=== PATIENT | male | born 1955 | race Caucasian/White ===

== ENCOUNTER → 2023-11-29 07:02 | Outpatient (REF) | payer MEDICARE, OTHER, SELFPAY ==
[2023-11-29 07:39] LABS: % Basophils 0.4 % (0-2); % Eosinophils 4.3 % (0-6); % Immature Granulocytes 0.4 % (0-0.5); % Lymphocytes 17.1 % (20.5-51.1); % Monocytes 14.7 % (1.7-9.3); % Neutrophils 63.1 % (42.2-75.2); Absolute Eosinophils 0.2 10^3/uL (0-0.7); Absolute Lymphocytes 0.8 10^3/uL (1.2-3.4); Absolute Monocytes 0.7 10^3/uL (0.1-0.6); Absolute Neutrophils 2.9 10^3/uL (1.4-6.5); Hematocrit 44.8 % (39.0-52.0); Hemoglobin 13.7 g/dL (13.0-18.0); Mean Corp Hgb Conc. 30.6 g/dL (33.0-37.0); Mean Corpuscular Hgb 20.2 pg (27.0-31.0); Mean Corpuscular Volume 66.1 fL (80.0-94.0); Mean Platelet Volume 9.9 fL (7.4-10.4); Nucleated Red Blood Cells % 0 % (-); Platelet Count 109 10^3/uL (130-400); Red Blood Cell Count 6.78 10^6/uL (4.70-6.10); Red Cell Dist. Width 17.4 % (11.5-14.5); White Blood Cell Count 4.6 10^3/uL (4.8-10.8)
[2023-11-29 08:48] LABS: ALT (SGPT) 17 U/L (0-50); AST (SGOT) 21 U/L (17-59); Albumin 4.5 g/dl (3.5-5.0); Alkaline Phosphatase 61 U/L (38-126); Blood Urea Nitrogen 28 mg/dl (9-20); Calcium 9.6 mg/dl (8.4-10.2); Carbon Dioxide 26 mmol/L (22-30); Chloride 102 mmol/L (98-107); Glucose 100 mg/dl (70-99); HDL Cholesterol 55 mg/dl; LDL Cholesterol, Calculated 87 mg/dl; Potassium 4.2 mmol/L (3.5-5.1); Sodium 137 mmol/L (135-145); Total Cholesterol 165 mg/dl (50-199); Total Protein 7.3 g/dl (6.3-8.2); Triglyceride 118 mg/dl (10-149); Very Low Density Lipoprotein 23 mg/dl (0-30); eGFR > 60.00
[2023-11-29 09:11] LABS: TSH 2.27 uIU/ml (0.47-4.68)
== END ==
LOC: REG 07:02
PROVIDERS: ATTENDING PHYSICIAN Internal Medicine
DX: Z00.00 Encounter for general adult medical examination without abnormal findings (principal); R97.20 Elevated prostate specific antigen [PSA]; C60.9 Malignant neoplasm of penis, unspecified; E78.5 Hyperlipidemia, unspecified
CPT/HCPCS: 36415; 80053; 80061; 84153; 84443; 85025

== ENCOUNTER → 2023-12-26 07:30 | Outpatient (REF) | payer MEDICARE, OTHER, SELFPAY | LOC: MRI 3T 07:30 | PROVIDERS: ATTENDING PHYSICIAN Internal Medicine; REFERRING PHYSICIAN Internal Medicine Hematology & Oncology | DX: R97.20 Elevated prostate specific antigen [PSA] (principal) | CPT/HCPCS: 72197; A9575 ==

== ENCOUNTER → 2024-01-07 14:24 | Outpatient (REF) | payer MEDICARE, OTHER, SELFPAY | LOC: HWRAD 14:24 | PROVIDERS: ATTENDING PHYSICIAN Nurse Practitioner Family; FAMILY PHYSICIAN Internal Medicine | DX: C60.9 Malignant neoplasm of penis, unspecified (principal); C61 Malignant neoplasm of prostate | CPT/HCPCS: 71270; 74170; Q9967 ==

== ENCOUNTER → 2024-03-16 16:37 | Outpatient (REF) | payer MEDICARE, OTHER, SELFPAY | LOC: RAD 16:37 | PROVIDERS: ATTENDING PHYSICIAN Internal Medicine | DX: S00.11XA Contusion of right eyelid and periocular area, initial encounter (principal); W19.XXXA Unspecified fall, initial encounter; R51.9 Headache, unspecified | CPT/HCPCS: 70450 ==

== ENCOUNTER → 2024-04-14 06:57 | Outpatient (REF) | payer MEDICARE, OTHER, SELFPAY | LOC: REG 06:57 | PROVIDERS: ATTENDING PHYSICIAN Internal Medicine Hematology & Oncology; FAMILY PHYSICIAN Internal Medicine | DX: C61 Malignant neoplasm of prostate (principal); C60.9 Malignant neoplasm of penis, unspecified | CPT/HCPCS: 36415; 84153 ==

== ENCOUNTER → 2024-06-30 07:03 | Outpatient (REF) | payer MEDICARE, OTHER, SELFPAY ==
[2024-06-30 08:00] LABS: % Basophils 0.5 % (0-2); % Eosinophils 5.1 % (0-6); % Immature Granulocytes 0.3 % (0-0.5); % Lymphocytes 18.3 % (20.5-51.1); % Neutrophils 62.8 % (42.2-75.2); Absolute Eosinophils 0.2 10^3/uL (0-0.7); Absolute Lymphocytes 0.7 10^3/uL (1.2-3.4); Absolute Monocytes 0.5 10^3/uL (0.1-0.6); Absolute Neutrophils 2.5 10^3/uL (1.4-6.5); Hematocrit 45.4 % (39.0-52.0); Hemoglobin 13.6 g/dL (13.0-18.0); Mean Corpuscular Hgb 20.1 pg (27.0-31.0); Mean Corpuscular Volume 67.2 fL (80.0-94.0); Mean Platelet Volume 9.7 fL (7.4-10.4); Nucleated Red Blood Cells % 0 % (-); Platelet Count 131 10^3/uL (130-400); Red Blood Cell Count 6.76 10^6/uL (4.70-6.10); Red Cell Dist. Width 17.7 % (11.5-14.5); White Blood Cell Count 3.9 10^3/uL (4.8-10.8)
[2024-06-30 08:23] LABS: Blood Urea Nitrogen 27 mg/dl (9-20); Calcium 9.5 mg/dl (8.4-10.2); Carbon Dioxide 30 mmol/L (22-30); Chloride 101 mmol/L (98-107); Glucose 97 mg/dl (70-99); Potassium 4.5 mmol/L (3.5-5.1); Sodium 144 mmol/L (135-145); eGFR > 60.00
== END ==
LOC: REG 07:03
PROVIDERS: ATTENDING PHYSICIAN Urology; FAMILY PHYSICIAN Internal Medicine
DX: Z01.818 Encounter for other preprocedural examination (principal); C61 Malignant neoplasm of prostate; Z01.812 Encounter for preprocedural laboratory examination
CPT/HCPCS: 36415; 71046; 80048; 84153; 85025; 87086

== ENCOUNTER 2024-07-31 07:36 | Emergency (ER) | payer MEDICARE, OTHER, SELFPAY ==
[2024-07-31 07:40] VITALS: BP 157/97
--- NOTE | 2024-07-31 08:48 | ED.GENMED ---
History of Present Illness
General
Chief Complaint: Urinary Symptoms
Time Seen by Provider: 07/31/24 08:08
History of Present Illness
History of Present Illness:
68-year-old male with history of penile cancer and prostate cancer, status post cryoablation of his prostate 07/23 in [place]. Patient traveled to [place] specifically for this minimally invasive procedure. He was told by his doctor that he could
go to his primary care doctor and get his Qiu removed today. He tried to follow-up with his primary care doctor, however had difficulty doing such, and was told to come to the ER. Patient denies any complications postsurgery. He notes that his
urine has been clear. Denies any fever. Denies abdominal pain, chest pain, difficulty breathing. He does note moderate swelling to his testicles and his penis which she was told to expect. He denies additional acute medical complaints
Phy Exam
Physical Exam
Physical Exam:
General: Well-appearing, no clinical signs of dehydration, nontoxic and in no acute distress
HEENT: protecting airway
Neck: appears supple
CV: Normal heart rate
Resp: No accessory muscle use, no increased work of breathing
Abd: No distention
Extremities: No deformities, no swelling
Neuro: alert, no focal neurologic deficit
: Moderate swelling to testicles and penis. Qiu catheter draining clear urine
Rectal: deferred
Psych: Normal affect
Skin: Intact
Course
Vital Signs
Initial and Last Documented VS:
Initial Vital Signs
Temp Pulse Resp BP Pulse Ox
98.2 F 90 16 157/97 98
07/31/24 07:40 07/31/24 07:40 07/31/24 07:40 07/31/24 07:40 07/31/24 07:40
Last Documented Vital Signs
Temp Pulse Resp BP Pulse Ox
98.2 F 90 16 157/97 98
07/31/24 07:40 07/31/24 07:40 07/31/24 08:06 07/31/24 07:40 07/31/24 07:40
MDM/Problems Addressed
MDM/Problems Addressed:
68-year-old male with history of prostate and penile cancer presenting status post cryoablation to the prostate 07/23, requesting Qiu catheter be removed per his doctor in [place]. Vital signs on arrival are normal.
On exam, patient is resting comfortably, no acute distress or discomfort. Patient's testicles and penis are moderately swollen, which she was to expect. Did try to call patient's physician office, Dr. Abrams, however unable to reach anyone. Did
reach out to our urology service, note that patient had called their office yesterday, and they declined to remove his Qiu catheter. At this point do not feel comfortable removing patient's Qiu given level swelling. Advising patient to return
once swelling has reduced, or alternatively, to make an appointment with urology office in the next few weeks. Otherwise feel stable for discharge. Return precautions discussed and patient verbalized understanding
*Critical Care Note
Total Time (30-74mins, 75-104mins- exclusive of procedures): Not Applicable
ED Attending Note
-
Portions of this chart may have been created with voice recognition software.� Occasional wrong word or��sound alike� substitutions may have occurred due to the inherent limitations of voice recognition software.
Discharge Plan
Departure
Prescriptions:
No Action
acetaminophen 325 MG tablet
650 mg PO Q4HPRN PRN (Reason: Pain)
polyethylene glycol 3350 [Miralax] 17 GM powder in packet
17 grams PO DAILY PRN (Reason: constipation) Qty: 0 0RF
Referrals:
Nathaniel Jaquez MD [Family Provider] -
Interventions
Interventions:
*Risk Screen - Suicide Last Done: 07/31/24 07:40
*General Assessment Last Done: 07/31/24 08:07
*Neglect/Abuse Screening Last Done: 07/31/24 07:40
*ED COVID-19 Vaccine History Last Done: 07/31/24 08:07
ED-Male Genitourinary Assessment Last Done: 07/31/24 08:07
Discharge Date and Time
Print Language: CZECH
[2024-07-31 09:19] VITALS: BP 148/90
== END 2024-07-31 09:20 | disposition home or self-care (01) ==
LOC: EMR 07:36
PROVIDERS: EMERGENCY PHYSICIAN Student in an Organized Health Care Education/Training Program; FAMILY PHYSICIAN Internal Medicine
DX: N49.2 Inflammatory disorders of scrotum (principal); Z46.6 Encounter for fitting and adjustment of urinary device
CPT/HCPCS: 99281

== ENCOUNTER 2024-08-14 12:46 | Inpatient (IN) | payer MEDICARE, OTHER, SELFPAY ==
[2024-08-14] VITALS (11 sets, daily range): BP systolic 122–152; BP diastolic 60–85; BMI 28.9; BMI 29.5
--- NOTE | 2024-08-14 08:36 | ED.GENMED ---
History of Present Illness
General
Chief Complaint: Fever
Source: patient, records and spouse
Exam Limitations: none
Time Seen by Provider: 08/14/24 08:11
Nursing documentation reviewed up to this point in time: agreed with
History of Present Illness
History of Present Illness:
68-year-old male with a past medical history as noted significant for penile and prostate cancer who presents to the emergency room with his for evaluation of fever and chills. Patient had surgery in [facility] with Dr. Abrams
07/23/2024 and has had Qiu catheter in place since. He had a course of Macrobid after surgery and has been maintained on Flomax. Initially catheter was to be removed after a week but unfortunately postoperative course has been complicated by
significant penile and scrotal edema precluding removal of catheter. Patient has been following here in [place] with Dr. Mccormack for urology, he is scheduled to have an appointment next week for consideration for catheter removal. He has been
on Lasix and potassium supplement to help with scrotal edema. He says urine has been clear and he had been doing generally well aside from scrotal swelling. He says last night he started to have high fever and chills. Discussed with urologist who
recommended he come to the ER to be evaluated. He has not noticed any cloudiness to the urine although it is slightly darker than usual today. He denies any abdominal or flank pain. He does have persistent scrotal swelling and was noted to have
some redness of the scrotum�he thinks this may be worse than usual. He does have soreness of the scrotum but says this is not new. He denies any other symptoms such as cough, URI symptoms.
Review of Systems
Review of Systems
All Other Systems: ROS reviewed and negative except as documented in HPI and ROS
Constitutional: Reports fever and chills
EENT: Denies sore throat or runny nose
Respiratory: Denies cough or trouble breathing
Cardiac: Denies chest pain
ABD/GI: Denies abdominal pain, nausea or vomiting
: Reports dark urine and other (Scrotal swelling and redness); Denies flank pain
Musculoskeletal: Denies neck pain or back pain
Neurological: Denies headache
Phy Exam
Physical Exam
Physical Exam:
General: Awake, alert, oriented x3; no acute distress
Head: Normocephalic, atraumatic
Eyes: Conjunctiva normal
Throat: Airway intact, handling secretions
Neck: Trachea midline, supple without meningismus
Lungs: Breathing comfortably noted distress, no tachypnea, normal pulse ox on room air
Heart: Tachycardia
Abd: Soft, non distended, nontender with no palpable masses
: Patient has marked penile and scrotal edema with Qiu catheter in place�unable to visualize glans/urethra due to marked edema; skin of the scrotum penis is erythematous, warm, tender to the touch and skin of the base of the scrotum is
indurated, no wounds, no significant erythema extending into the perineum, no crepitus or fluctuance; erythema does extend to the pubic mound/suprapubic region and this area is also warm and tender
Back: No CVA tenderness
Neuro: No gross deficits
Extremities: No edema in extremities, warm and well-perfused
Scores
Heart Failure Risk
Heart Failure Risk Score: Not Applicable
Heart Score for Chest Pain Patients
STEMI patient?: Not applicable
Withdrawal Assessment of Alcohol
Withdrawal Assessment Completed?: Not applicable
Course
Orders/Labs/Results
Orders:
Orders
08/14/24 08:32
0.9% Sodium Chloride 1000 ml [Nss] 1,000 ml IV BOLUS
08/14/24 08:35
UROLOGY CONSULT Urgent
Consulting Provider: Basil Krueger
Was physician already notified: Yes
08/14/24 08:36
CT Abd/pelvis W Iv Cont Urgent
Comment: extend to base of scrotum
Reason For Exam: fever and chills, scrotal swelling and redness
08/14/24 09:16
COVID-19 Antigen Urgent
Source: Nasal Swab
Complete Blood Count/With Diff Urgent
Comprehensive Metabolic Panel Urgent
Lactate Level [Lactic Acid] Urgent
Blood Culture Q30M
NANCY Source: Blood/Venous
Specimen Description:
Blood Culture Q30M
NANCY Source: Blood/Venous
Specimen Description:
Influenza A+B Rapid Molecular Urgent
NANCY Source: Nasal Swab
Specimen Description:
08/14/24 09:17
Urinalysis Reflex To Culture Urgent
Date Specimen was Collected: 08/14/24
Time Specimen was Collected: 09:14
Urine Microscopic Reflex Cult Urgent
Urine Culture Urgent
NANCY Source: U
Specimen Description:
Date Specimen was Collected: 08/14/24
Time Specimen was Collected: 09:14
08/14/24 09:29
Piperacillin/Tazo 3.375 Gram [Zosyn] 3.375 gram in 50 ml IV NOW
08/14/24 09:49
Vancomycin [Vancocin] 2,000 mg 0.9% Sodium Chloride 500 ml [Nss] 500 ml IV NOW
Abnormal Lab Results
08/14/24 08/14/24
09:16 09:17
Hgb 11.6 L g/dL
(13.0-18.0)
Hct 36.6 L %
(39.0-52.0)
MCV 64.2 L fL
(80.0-94.0)
MCH 20.4 L pg
(27.0-31.0)
MCHC 31.7 L g/dL
(33.0-37.0)
RDW 16.0 H %
(11.5-14.5)
MPV 10.7 H fL
(7.4-10.4)
Absolute Lymphs (auto) 0.5 L 10^3/uL
(1.2-3.4)
Neutrophils % 83.3 H %
(42.2-75.2)
Lymphocytes % 6.8 L %
(20.5-51.1)
BUN 24 H mg/dl
(9-20)
Glucose 107 H mg/dl
(70-99)
Ur Occult Blood Reflex 4+ A
(Negative)
Urine Nitrite (Reflex) Positive A
(Negative)
Leukocyte Esterase Rfl 2+ A
(Negative)
Urine RBC 50-60 A /HPF
(0-2)
Urine WBC (Reflex) >100 A /HPF
(0-5)
Urine Bacteria (Reflex) Moderate A
(Negative)
Urine Albumin (Reflex) 1+ A
(Neg - Trace)
08/14/24 09:16
08/14/24 09:16
Vital Signs
Initial and Last Documented VS:
Initial Vital Signs
Temp Pulse Resp BP Pulse Ox
37.5 C 107 16 136/82 96
08/14/24 07:29 08/14/24 07:29 08/14/24 07:29 08/14/24 07:29 08/14/24 07:29
Last Documented Vital Signs
Temp Pulse Resp BP Pulse Ox
36.8 C 107 16 136/82 96
08/14/24 09:23 08/14/24 07:29 08/14/24 07:29 08/14/24 07:29 08/14/24 07:29
MDM/Problems Addressed
Differential Diagnosis Includes:
UTI, skin infection/Akbar's; other source of fever non-urologic including URI/pneumonia less likely without other symptoms
MDM/Problems Addressed:
68-year-old male presents for evaluation of fever in the setting of recent urologic procedure and Qiu catheter. He has had significant scrotal and penile swelling since his procedure in mid July. He arrived was tachycardic, afebrile here but
reported fever of 101 �F at home. Physical exam as above. Will send off labs including a CBC and a CMP, lactate and blood cultures. Swab for COVID and flu. Will send urinalysis. Hold on exchanging Qiu catheter given marked penile and scrotal
edema and concerns about ability to replace catheter on removal. Will send for a CT of the abdomen pelvis extended the base of the scrotum. Will provide IV fluids. Case discussed with urology for consultation at bedside given marked scrotal edema
and erythema. Monitor very closely, follow temperature/vitals, reassess after the above.
Labs reviewed: CBC and CMP no clinically significant. Urinalysis positive for infection. CT abdomen pelvis shows signs consistent with UTI, minor incidental findings but no other acute pathology noted. Urology evaluated bedside, will treat with
antibiotics, admit to hospitalist. Case discussed with hospitalist for admission.
Chronic conditions affecting care:
Prostate/penile cancer
*Radiology
Radiology exam reviewed: radiology read reviewed
*Pulse Oximetry
Patient hypoxic: no
*Critical Care Note
Total Time (30-74mins, 75-104mins- exclusive of procedures): Not Applicable
Data Reviewed
Source: patient, records and spouse
Patient Management
Discussion with other providers: Hospitalist (Discussed with hospitalist) and Chart Collector (Discussed with urologist)
Escalation/DeEscalation of care consider admission/obs:
Admission indicated
ED Attending Note
-
Portions of this chart may have been created with voice recognition software.� Occasional wrong word or��sound alike� substitutions may have occurred due to the inherent limitations of voice recognition software.
Discharge Plan
Departure
Patient Disposition: Admit
Date of Disposition: 08/14/24
Time of Disposition: 11:28
Admit to doctor: Yannick
Presentation/result/management discussed w/ accepting MD/DO: Hospitalist
Discharge Problem:
Complicated urinary tract infection, Cellulitis of scrotum
Prescriptions:
No Action
ascorbic acid (vitamin C) [Vitamin C] 1,000 mg Tablet
1,000 mg PO DAILY
potassium chloride [Klor-Con] 20 mEq packet
20 meq PO DAILY@1200
tamsulosin 0.4 mg capsule
0.4 mg PO DAILY
bisacodyl [Dulcolax (bisacodyl)] 5 mg Tablet,Delayed Release (Dr/Ec)
5 mg PO DAILYPRN PRN (Reason: constipation)
furosemide 20 mg tablet
20 mg PO DAILY@1200
cholecalciferol (vitamin D3) [Vitamin D3] 125 mcg (5,000 unit) Tablet
125 mcg PO DAILY
Referrals:
Nathaniel Jaquez MD [Family Provider] -
Interventions
Interventions:
*Risk Screen - Suicide Last Done: 08/14/24 07:29
*General Assessment Last Done: 08/14/24 07:29
*Neglect/Abuse Screening Last Done: 08/14/24 07:29
ED- Fall Risk Assessment Last Done: 08/14/24 08:53
*ED COVID-19 Vaccine History Last Done: 08/14/24 08:53
ED- Neurological Assessment Last Done: 08/14/24 08:53
ED-Skin Assessment Last Done: 08/14/24 08:53
Discharge Date and Time
Print Language: TANZANIAN
[2024-08-14] MEDS: NSS 1000 IV (09:14)
--- NOTE | 2024-08-14 09:25 | CONS.URO ---
Medical History
History of Present Illness
pt with complex urologic hx
������� partial penectomy and groin dissection at [facility] in 2012 for penile carcinoma- dr hayes administered chemo- had been dz free since- some pelvic nodes on imaging- but stable
�������urologically has been under the care of dr gong
�������diagnosed with prostate cancer for which he elected to go to [place] for primary cryoablation, performed during July; returned to [place] with Qiu
now presents to ED for worsening peno-scrotal edema with pain and fevers
Past Medical History
Past Medical History: None ( Thalassemia. Sarcoidosis - Asymptomatic-Diagnosed by Biopsy. boarderline DM. Penile Cancer-Chemo, SurgeryUOP [address].)
Past Surgical History: Other (partial penectomy + LND in 2012; 07/2024 prostate cryoablation in [place])
Social History
Personal:
Allergies/Home Medications
Allergies
Allergy/AdvReac Type Severity Reaction Status Date / Time
nitrofurantoin Allergy Rash Verified 08/14/24 07:36
[From Macrobid]
Home Medications
�Medication �Instructions �Recorded �Confirmed �Type
acetaminophen 325 mg tablet 650 mg PO Q4HPRN PRN Pain 07/02/13 07/23/13 History
polyethylene glycol 3350 17 gram 17 grams PO DAILY PRN constipation 07/26/13 Rx
oral powder packet (Miralax) ##0
Physical Exam
Vital Signs
Vital Signs
Temp Pulse Resp BP Pulse Ox
98.3 F 107 16 136/82 96
08/14/24 09:23 08/14/24 07:29 08/14/24 07:29 08/14/24 07:29 08/14/24 07:29
Physical Exam
adult male on ED [facility]
General: No Apparent Distress
GI: Soft and Non Tender
Genito-urinary: Qiu Catheter and Other (uncircumcised penis and scrotum are grossly edematous and erythematous with tender induration along inferior scrotum into perineum)
Assessment / Plan
-
peno-scrotal cellulitis -- post-cryoablation necrosis
Rec:
keep Qiu
empiric abx until micro results return
Data Reviewed
-
Old Records: Reviewed
[2024-08-14 09:43] LABS: % Basophils 0.2 % (0-2); % Eosinophils 0.9 % (0-6); % Immature Granulocytes 0.3 % (0-0.5); % Lymphocytes 6.8 % (20.5-51.1); % Monocytes 8.5 % (1.7-9.3); % Neutrophils 83.3 % (42.2-75.2); Absolute Eosinophils 0.1 10^3/uL (0-0.7); Absolute Lymphocytes 0.5 10^3/uL (1.2-3.4); Absolute Monocytes 0.6 10^3/uL (0.1-0.6); Absolute Neutrophils 5.5 10^3/uL (1.4-6.5); Hematocrit 36.6 % (39.0-52.0); Hemoglobin 11.6 g/dL (13.0-18.0); Mean Corp Hgb Conc. 31.7 g/dL (33.0-37.0); Mean Corpuscular Hgb 20.4 pg (27.0-31.0); Mean Corpuscular Volume 64.2 fL (80.0-94.0); Mean Platelet Volume 10.7 fL (7.4-10.4); Nucleated Red Blood Cells % 0 % (-); Platelet Count 136 10^3/uL (130-400); White Blood Cell Count 6.6 10^3/uL (4.8-10.8)
[2024-08-14] MEDS: ZOSYN 50 IV ×3 (09:43→23:12)
[2024-08-14 09:54] LABS: Urine Albumin 1+ (Neg - Trace); Urine Bilirubin Negative (Negative); Urine Character Slightly Cloudy (Clear); Urine Color Yellow; Urine Glucose Negative (Negative); Urine Ketone Negative (Negative); Urine Leukocyte 2+ (Negative); Urine Nitrite Positive (Negative); Urine Occult Blood 4+ (Negative); Urine Urobilinogen Negative (Neg - 1+)
[2024-08-14 09:57] LABS: COVID-19 Antigen Negative (Negative)
[2024-08-14 10:00] LABS: Lactic Acid 1.2 mmol/L (0.7-2.0)
[2024-08-14 10:01] LABS: ALT (SGPT) 13 U/L (0-50); AST (SGOT) 17 U/L (17-59); Albumin 3.7 g/dl (3.5-5.0); Alkaline Phosphatase 56 U/L (38-126); Blood Urea Nitrogen 24 mg/dl (9-20); Carbon Dioxide 29 mmol/L (22-30); Chloride 98 mmol/L (98-107); Estimated Creatinine Clearance 71 ml/min; Glucose 107 mg/dl (70-99); Potassium 3.9 mmol/L (3.5-5.1); Sodium 136 mmol/L (135-145); Total Bilirubin 1.2 mg/dl (0.2-1.3); Total Protein 6.4 g/dl (6.3-8.2); eGFR > 60.00
[2024-08-14 10:42] LABS: Urine White Cell >100 /HPF (0-5)
[2024-08-14 10:43] LABS: Urine Bacteria Moderate (Negative); Urine Squamous Cell 0-2 /LPF (Few)
[2024-08-14 10:44] LABS: Urine Red Blood Cell 50-60 /HPF (0-2)
[2024-08-14] MEDS: VANCOCIN 540 MG IV (10:49)
--- NOTE | 2024-08-14 12:29 | HPS.HSE ---
Family Physician
-
Family Physician: Nathaniel Jaquez MD
Chief Complaint
-
Fever, Scrotal/Penile Swelling
History of Present Illness
Patient is a 68 y/o male past medical history of penile cancer in 2012 and prostate cancer s/p cryoablation on 07/23/24 who presents with fever with scrotal/penile swelling. Patient reports since the procedure he has had persistent swelling of the
penis and scrotum. He has had a Qiu catheter in place since the surgery due to the persistent swelling. Last night he developed fever as high as 101F associated with sweats/chills. He denies cough, nausea, vomiting, diarrhea, or abdominal pain.
Medical History
Past Medical History
Past Medical History: Reports Other
Additional Past Medical History:
Sarcoidosis
Thalassemia Minor
Prostate Cancer s/p Cryoablation
Penile Cancer s/p Partial Penectomy/Lymph Node Dissection and Chemotherapy
Past Surgical History: Reports Other
Additional Past Surgical History:
Partial Penectomy with Groin Lymph Node Dissection
Social History
Tobacco: Former Smoker (Quit in 1995)
Alcohol: Occasional
Family History
Family History: Not pertinent
Allergies / Home Medications
Allergies reflects when Allergies were last updated in [facility].
Home Medications with original date entered in [facility]
Allergy/Medication List:
Allergies
Allergy/AdvReac Type Severity Reaction Status Date / Time
nitrofurantoin Allergy Rash Verified 08/14/24 07:36
[From Macrobid]
Home Medications
ascorbic acid (vitamin C) 1,000 mg tablet (Vitamin C) 1,000 mg PO DAILY 08/14/24
bisacodyl 5 mg tablet,delayed release (Dulcolax (bisacodyl)) 5 mg PO DAILYPRN PRN constipation 08/14/24
cholecalciferol (vitamin D3) 125 mcg (5,000 unit) tablet (Vitamin D3) 125 mcg PO DAILY 08/14/24
furosemide 20 mg tablet 20 mg PO DAILY@1200 08/14/24
potassium chloride 20 mEq oral packet (Klor-Con) 20 meq PO DAILY@1200 08/14/24
tamsulosin 0.4 mg capsule 0.4 mg PO DAILY 08/14/24
Review of Systems
-
A 12 point ROS was completed and negative except as noted: Yes
Constitutional: Denies Fever or Chills
Respiratory: Denies Cough or Trouble Breathing
Cardiac: Denies Chest Pain or Palpitations
Abdomen/GI: Denies Abdominal Pain, Nausea, Vomiting or Diarrhea
Physical Exam
Vital Signs
Vital Signs
Temp Pulse Resp BP Pulse Ox
97.9 F 107 16 132/71 98
08/14/24 12:03 08/14/24 07:29 08/14/24 07:29 08/14/24 12:03 08/14/24 12:03
Physical Exam
General: Comfortable and Conversant
HEENT: Anicteric and Moist mucous membranes
Respiratory: Clear and Non Labored Respirations
Cardiac: S1/S2 and Regular Rhythm
GI: Soft and Non Tender
Genito-urinary: Qiu and Other (Uncircumscribed penis with signficant penile and scrotal edema. Moderate erythema of scrotum and penile extending up towards the suprapubic region)
Skin: Warm and Dry
Neuro: Awake, Alert, Oriented and Nonfocal/grossly intact
Psych: Calm
Laboratory Results
-
08/14/24 09:16
08/14/24 09:16
Laboratory Results
Lactic Acid 1.2 mmol/L (0.7-2.0) 08/14/24 09:16
Total Bilirubin 1.2 mg/dl (0.2-1.3) 08/14/24 09:16
AST 17 U/L (17-59) 08/14/24 09:16
ALT 13 U/L (0-50) 08/14/24 09:16
Alkaline Phosphatase 56 U/L (38-126) 08/14/24 09:16
Data Reviewed
-
CT Scan: Report Reviewed by me
Lab Data: Labs Reviewed by me
Impression/Plan
-
Sepsis secondary to Catheter-Associated UTI and Peno-Scrotal Cellulitis/Post-Ablation Necrosis
-Appreciate Urology Consult
-Continue Vancomycin and Zosyn
-Await Urine and Blood Cultures
Bilateral Hydrocele
-Keep Scrotum/Penis Elevated
-Defer further management to Urology
Thalassemia Minor
-Hgb Stable
Sarcoidosis
-Not currently on treatment
Prostate Cancer s/p Cryoablation on 07/23/24
Hx Penile Cancer s/p Partial Penectomy/Lymph Node Dissection and Chemotherapy in 2012
DVT proph: Lovenox
Code Status: Full Code
--- NOTE | 2024-08-14 12:45 | W.PN.UPDATE ---
Update Note
Progress Note Update
This note serves as an addendum to the H&P by learning and development director ADRIANA
Haylie DIETERICK
HPI
68M with complex urologic HX , Penile Cancer-Chemo, Surgery UOP [address], HX Thalassemia, Asymtomatic Sarcoidosis by biopsy, borderline DM seen at ER;
- evaluation of fever and chills.
- Surgery Cryoablation Prostate CA in [facility] with Dr. Abrams 07/23/2024 and has had Qiu catheter in place since.
- postoperative course has been complicated by significant penile and scrotal edema precluding removal of catheter
- had a course of Macrobid after surgery and has been maintained on Flomax.
- Patient has been following here in [place] with Dr. Mccormack for urology,
- He has been on Lasix and potassium supplement to help with scrotal edema.
- He says urine has been clear and he had been doing generally well aside from scrotal swelling.
- last night he started to have high fever and chills
PHX
HX Thalassemia,
Asymptomatic Sarcoidosis by biopsy Rt Hilar mass POS PET for sarcoid
borderline DM
Partial penectomy and groin dissection at [facility] in 2012 for penile carcinoma
( Dr Sarmiento administered chemo- had been dz free since- some pelvic nodes on imaging- but stable)
Urologically has been under the care of Dr Herrera
Diagnosed with prostate cancer for which he elected to go to [place] for primary cryoablation, performed during July; returned to [place] with Qiu
Vital Signs
Temp Pulse Resp BP Pulse Ox
97.9 F 107 16 132/71 98
08/14/24 12:03 08/14/24 07:29 08/14/24 07:29 08/14/24 12:03 08/14/24 12:03
PE
General: No Apparent Distress
GI: Soft and Non Tender
Genito-urinary: Qiu Catheter and Other (uncircumcised penis and scrotum are grossly edematous and erythematous with tender induration along inferior scrotum into perineum)
Gen:
HEENT: Not toxic
: Patient has marked penile and scrotal edema with Qiu catheter in place�unable to visualize glans/urethra due to marked edema; skin of the scrotum penis is erythematous, warm, tender to the touch and skin of the base of the scrotum is
indurated, no wounds, no significant erythema extending into the perineum, no crepitus or fluctuance; erythema does extend to the pubic mound/suprapubic region and this area is also warm and tender
Data
CBC and CMP no clinically significant.
UA positive for UTI
CT Abd/pelvis W Iv Cont:
Haziness surrounding the bladder concerning for UTI. New.
Moderate bladder wall thickening concerning for cystitis versus bladder outlet obstruction.
Moderate prostate hypertrophy. Stable
Large bilateral hydroceles. New
Possible right hilar mass versus consolidation pneumonia. Stable.
Prior PET/CT suggest findings consistent with known sarcoidosis.
There are partially calcified hilar and mediastinal lymph nodes consistent with sarcoidosis as well.
Moderate probable right upper lobe atelectasis versus scarring. Stable
Lingular, left lower lobe and probable right upper lobe pulmonary nodules. Stable and without activity on recent PET imaging.
Gallstones. Stable
1 mm nonobstructing left renal stone. Previously 2 stones were present on the left.
Moderate fecal material throughout the colon. Stable
ASSESSMENT & PLAN
Peno-scrotal cellulitis s/p cryoablation necrosis for Prostate CA in [place]
Complicated CAUTI associated with sepsis (T [address] )
- NEG MRSA screen in the past
- keep Qiu
- f/u UCx
- cont. IV vancomycin and Zosyn
- cont. Frusemide and KCL suplelent
- Uro consulted
Chr known HX:
HX Thalassemia
Asymptomatic Sarcoidosis by biopsy
Known Rt hilar mass and Prior PET/CT suggest findings consistent with known sarcoidosis.
Borderline DM
- stable
DVT PPX; LMWH
Full code
IP TLM
--- NOTE | 2024-08-14 19:18 | PHA.VAN.IN ---
Assessment
- Assessment
Renal Function: Appears similar to baseline (06/30/24 SCR = 1.0)
Concomitant Antimicrobials: ZOSYN
- Previous Dosing Experience
Previous Regimen: NONE
AUC Dosing Plan
- Dosing Variables
Dosing Weight (kg): 83.5
Dosing CrCl (ml/min): 71
Vd coefficient (L/kg): 0.7
- Empiric Dosing
Initial / Loading Dose: 2GM
Maintenance Regimen: 1GM IV Q12H
Estimated AUC (mcg*h/mL): 557
Estimated Peak (mcg*h/mL): 32.1
Estimated Trough (mcg/ml): 16
Estimated Half Life (H): 10.9
Pharmacokinetics Vancomycin I
- -
Patient Age: 68
Patient Sex: Male
Vancomycin Day #: 1
Indication: Skin And Soft Tissue (PENO SCROTAL CELLULITIS/SEPSIS)
Requesting Provider: DOMONIQUE
Pertinent Antimicrobial Allergies:
Allergies
nitrofurantoin [From Macrobid] Allergy (Verified 08/14/24 07:36)
Rash
Height / Weight:
Height 5 ft 7 in
Actual Weight 83.5 kg
Pertinent Past Medical History: CRYOABLATION FOR PROSTATE CA 07/23/24
- Vital Signs / Lab Results
Temp Pulse Resp BP Pulse Ox
97.9 F 107 16 124/68 95
08/14/24 12:03 08/14/24 07:29 08/14/24 07:29 08/14/24 17:00 08/14/24 17:00
Lab Results - Hematology
08/14/24
09:16
WBC 6.6
Lab Results - Chemistry
08/14/24
09:16
BUN 24 H
Creatinine 0.9
Estimated Creat Clear 71
Albumin 3.7
08/14/24
09:16
Lactic Acid 1.2
Lab Results - Urine
08/14/24
09:17
Urine Nitrite (Reflex) Positive A
Leukocyte Esterase Rfl 2+ A
Urine WBC (Reflex) >100 A
Ur Squamous Epith Cells 0-2
Urine Bacteria (Reflex) Moderate A
Microbiology Results
08/14/24 09:16 Influenza Types A & B (JEANNETTE) - Final
Nasal Swab Negative for Influenza A & B, NAAT
Negative results must be combined with clinical observations
and patient history.
Nucleic Acid Amplification test (NAAT)performed on the
[employer] platform.
[2024-08-14] MEDS: LOVENOX 40 MG SC (19:40)
--- NOTE | 2024-08-14 20:15 | PTCARENOTE ---
Pt received from the ED via bed at 1999. Pt pleasant, AAOX3, VSS, and has a chronic jones in place. Pt states they are absent of pain but just his scrotum is causing him discomfort. Per orders, pt's scrotal area elevated with pillow. Pt receptive to
room and call payne. Pt bed in lowest position and call payne within reach. Pt educated on importance of call payne usage, pt relays understanding and cooperation. Will continue with current plan of care.
[2024-08-15 03:28] VITALS: BP 150/83
[2024-08-15] MEDS: ZOSYN 50 IV ×4 (05:36→23:34)
[2024-08-15] MEDS: VANCOCIN 200 IV ×2 (06:39→18:21)
[2024-08-15 07:46] VITALS: BP 126/84
[2024-08-15 08:41] LABS: Hematocrit 34.6 % (39.0-52.0); Hemoglobin 10.9 g/dL (13.0-18.0); Mean Corp Hgb Conc. 31.5 g/dL (33.0-37.0); Mean Corpuscular Hgb 20.1 pg (27.0-31.0); Mean Platelet Volume 10.5 fL (7.4-10.4); Platelet Count 135 10^3/uL (130-400); Red Blood Cell Count 5.41 10^6/uL (4.70-6.10); Red Cell Dist. Width 15.8 % (11.5-14.5); White Blood Cell Count 7.5 10^3/uL (4.8-10.8)
[2024-08-15] MEDS: FLOMAX 0.4 MG PO (09:01)
[2024-08-15 09:35] LABS: Blood Urea Nitrogen 20 mg/dl (9-20); Carbon Dioxide 25 mmol/L (22-30); Chloride 102 mmol/L (98-107); Estimated Creatinine Clearance 71 ml/min; Glucose 112 mg/dl (70-99); Potassium 3.8 mmol/L (3.5-5.1); Sodium 136 mmol/L (135-145); eGFR > 60.00
--- NOTE | 2024-08-15 09:49 | W.PN.URO.CBU ---
Today's Communication / Plan
-
Rec:
keep Qiu
empiric abx until micro results return
Assessment / Plan
-
peno-scrotal cellulitis/edema -- post-cryoablation necrosis
Diagnosis
-
Date of Service: August 15, 2024
-
Patient Diagnosis:
peno-scrotal cellulitis -- post-cryoablation necrosis
Subjective
-
'better'
Objective
-
Vital Signs
Temp Pulse Resp BP Pulse Ox
98.2 F 77 18 126/84 95
08/15/24 07:46 08/15/24 07:46 08/15/24 07:46 08/15/24 07:46 08/15/24 07:46
Intake and Output
08/14/24 08/15/24 08/16/24
06:59 06:59 06:59
Intake Total 350 / 350
Output Total 650 / 650
Balance -300 / -300
Intake:
IV fluids (Total) 100 / 100
IV piggybacks 250 / 250
Output:
Urine, Qiu 650 / 650
Laboratory Results
08/15/24 08:14
08/15/24 08:14
CT: c/w cystitis/prostatitis
Physical Exam
-
General - well developed, well nourished, no acute distress
Genitalia - peno-scrotal edema and erythema; less tender today; Qiu in place
--- NOTE | 2024-08-15 09:54 | W.PN.HOSP.TC ---
Today's Communication/Plan
-
Continue antibiotics. PT OT eval
Assessment / Plan
Assessment / Plan
Physical Exam
General: Comfortable and Conversant
HEENT: Anicteric and Moist mucous membranes
Respiratory: Clear and Non Labored Respirations
Cardiac: S1/S2 and Regular Rhythm
GI: Soft and Non Tender
Genito-urinary: Qiu and Other (Uncircumscribed penis with signficant penile and scrotal edema. Moderate erythema of scrotum and penile extending up towards the suprapubic region)
Skin: Warm and Dry
Neuro: Awake, Alert, Oriented and Nonfocal/grossly intact
Psych: Calm
A/P:
Sepsis secondary to Catheter-Associated UTI and Peno-Scrotal Cellulitis/Post-Ablation Necrosis
-Appreciate Urology Consult
-Continue Vancomycin and Zosyn
-Await Urine and Blood Cultures
-PT OT eval
-Discussed with at bedside
Bilateral Hydrocele
-Keep Scrotum/Penis Elevated
-Defer further management to Urology
Thalassemia Minor
-Hgb Stable
Sarcoidosis
-Not currently on treatment
Prostate Cancer s/p Cryoablation on 07/23/24
Hx Penile Cancer s/p Partial Penectomy/Lymph Node Dissection and Chemotherapy in 2012
DVT proph: Lovenox
Code Status: Full Code
Time spent 55 minutes
Anticipated Discharge: 24 - 48 hours
Subjective/Interval History
-
Date of Service: August 15, 2024
Patient feels better overall. Still having scrotal swelling and erythema. Afebrile
Objective Data
-
Labs:
Laboratory Results
08/15/24
08:14
WBC 7.5
Hgb 10.9 L
Hct 34.6 L
Plt Count 135
Sodium 136
Potassium 3.8
Chloride 102
Carbon Dioxide 25
BUN 20
Creatinine 0.9
Glucose 112 H
Calcium 9.0
Vital Signs:
Vital Signs
Temp Pulse Resp BP Pulse Ox
98.2 F 77 18 126/84 95
08/15/24 07:46 08/15/24 07:46 08/15/24 07:46 08/15/24 07:46 08/15/24 07:46
I&O
08/14/24 08/15/24 08/16/24
06:59 06:59 06:59
Intake Total 350 / 350
Output Total 650 / 650
Balance -300 / -300
--- NOTE | 2024-08-15 10:09 | PHA.VAN.FU ---
Vancomycin Assessment / Plan
- Assessment
Renal Function: Stable
WBC's are: Trending Up
In the past 24 hrs, patient has been: Afebrile
Concomitant Antimicrobials: Piperacillin-tazobactam
- Dosing Plan
Continue: Vanc 1000mg IV q12H
- Monitoring Plan
No level(s) ordered at this time: Consider levels after 1/5 1800 dose
- Follow Up
Pharmacy will continue to follow.
Vancomycin Follow UP
- -
Patient Age: 68
Patient Sex: Male
Vancomycin Day #: 2
Indication: Skin And Soft Tissue (PENO SCROTAL CELLULITIS/SEPSIS)
Requesting Provider: DOMONIQUE
Pertinent Antimicrobial Allergies:
Allergies
nitrofurantoin [From Macrobid] Allergy (Verified 08/14/24 07:36)
Rash
Height / Weight:
Height 5 ft 7 in
Actual Weight 85.445 kg
Pertinent Past Medical History: CRYOABLATION FOR PROSTATE CA 07/23/24
- Vital Signs / Lab Results
Temp Pulse Resp BP Pulse Ox
98.2 F 77 18 126/84 95
08/15/24 07:46 08/15/24 07:46 08/15/24 07:46 08/15/24 07:46 08/15/24 07:46
Lab Results - Hematology
08/14/24 08/15/24
09:16 08:14
WBC 6.6 7.5
Lab Results - Chemistry
08/14/24 08/15/24
09:16 08:14
BUN 24 H 20
Creatinine 0.9 0.9
Estimated Creat Clear 71 71
Albumin 3.7
08/14/24
09:16
Lactic Acid 1.2
Lab Results - Urine
08/14/24
09:17
Urine Nitrite (Reflex) Positive A
Leukocyte Esterase Rfl 2+ A
Ur Squamous Epith Cells 0-2
Microbiology Results
08/14/24 09:16 Blood Culture - Preliminary
Blood/Venous No Growth in 24 hours- Final report to follow
08/14/24 09:16 Blood Culture - Preliminary
Blood/Venous No Growth in 24 hours- Final report to follow
08/14/24 09:16 Influenza Types A & B (JEANNETTE) - Final
Nasal Swab Negative for Influenza A & B, NAAT
Negative results must be combined with clinical observations
and patient history.
Nucleic Acid Amplification test (NAAT)performed on the
[employer] NOW platform.
[2024-08-15 11:19] VITALS: BP 142/70
[2024-08-15] MEDS: LASIX 20 MG PO (12:38)
[2024-08-15] MEDS: KLOR-CON 20 MEQ PO (12:39)
[2024-08-15 15:38] VITALS: BP 135/70
[2024-08-15] MEDS: LOVENOX 40 MG SC (17:13)
[2024-08-15 19:53] VITALS: BP 130/78
[2024-08-15 23:14] VITALS: BP 142/84
[2024-08-16] VITALS (7 sets, daily range): BP systolic 120–158; BP diastolic 55–91; PULSE 79; O2SAT 95
[2024-08-16] MEDS: ZOSYN 50 IV (05:02)
[2024-08-16] MEDS: VANCOCIN 200 IV (05:42)
--- NOTE | 2024-08-16 06:52 | W.PN.URO.CBU ---
Today's Communication / Plan
-
abx per micro
outpatine f/u with Dr Mccormack as previously scheduled
Assessment / Plan
-
peno-scrotal cellulitis/edema -- post-cryoablation necrosis
UTI: gram neg bacilli growing in urine
Diagnosis
-
Date of Service: August 16, 2024
-
Patient Diagnosis:
Post Op Day:
Patient Diagnosis:
peno-scrotal cellulitis -- post-cryoablation necrosis
UTI: gram neg bacilli growing in urine
Subjective
-
better, slowly
Objective
-
Vital Signs
Temp Pulse Resp BP Pulse Ox
98.9 F 81 16 158/91 96
08/16/24 03:41 08/16/24 03:41 08/16/24 03:41 08/16/24 03:41 08/16/24 03:41
Intake and Output
08/14/24 08/15/24 08/16/24
06:59 06:59 06:59
Intake Total 350 / 350 1930 / 1930
Output Total 650 / 650 1250 / 1250
Balance -300 / -300 680 / 680
Intake:
Oral fluids 1440 / 1440
IV fluids (Total) 100 / 100 40 / 40
IV piggybacks 250 / 250 450 / 450
Output:
Urine, Qiu 650 / 650 1250 / 1250
gram neg bacilli growing in urine
Physical Exam
-
: Qiu draining orange-red, clot-free urine; penis/scrotum: edematous and erythematous
[2024-08-16 08:16] LABS: % Basophils 0.1 % (0-2); % Eosinophils 2.5 % (0-6); % Immature Granulocytes 0.3 % (0-0.5); % Lymphocytes 7.7 % (20.5-51.1); % Monocytes 13.4 % (1.7-9.3); Absolute Eosinophils 0.2 10^3/uL (0-0.7); Absolute Lymphocytes 0.5 10^3/uL (1.2-3.4); Absolute Monocytes 0.9 10^3/uL (0.1-0.6); Absolute Neutrophils 5.2 10^3/uL (1.4-6.5); Hematocrit 34.9 % (39.0-52.0); Hemoglobin 11.2 g/dL (13.0-18.0); Mean Corp Hgb Conc. 32.1 g/dL (33.0-37.0); Mean Corpuscular Hgb 20.5 pg (27.0-31.0); Mean Corpuscular Volume 63.8 fL (80.0-94.0); Mean Platelet Volume 10.6 fL (7.4-10.4); Nucleated Red Blood Cells % 0 % (-); Platelet Count 137 10^3/uL (130-400); Red Blood Cell Count 5.47 10^6/uL (4.70-6.10); Red Cell Dist. Width 15.7 % (11.5-14.5); White Blood Cell Count 6.9 10^3/uL (4.8-10.8)
--- NOTE | 2024-08-16 08:32 | W.PN.HOSP.TC ---
Today's Communication/Plan
-
IV antibiotics. PT OT eval
Assessment / Plan
Assessment / Plan
Physical Exam
General: Comfortable and Conversant
HEENT: Anicteric and Moist mucous membranes
Respiratory: Clear and Non Labored Respirations
Cardiac: S1/S2 and Regular Rhythm
GI: Soft and Non Tender
Genito-urinary: Qiu and Other (Uncircumscribed penis with signficant penile and scrotal edema. Moderate erythema of scrotum and penile extending up towards the suprapubic region)
Skin: Warm and Dry
Neuro: Awake, Alert, Oriented and Nonfocal/grossly intact
Psych: Calm
A/P:
Sepsis secondary to Catheter-Associated UTI and Peno-Scrotal Cellulitis/Post-Ablation Necrosis
-Appreciate Urology Consult and follow-up
-Urine culture with Pseudomonas.
-Will change IV Zosyn to IV cefepime. Discontinue vancomycin today.
-Urine culture with Pseudomonas awaiting sensitivities. Blood cultures no growth.
-PT OT eval
-Discussed with at bedside today on 08/16
Bilateral Hydrocele
-Keep Scrotum/Penis Elevated
-Defer further management to Urology
Thalassemia Minor
-Hgb Stable
Sarcoidosis
-Not currently on treatment
Prostate Cancer s/p Cryoablation on 07/23/24
Hx Penile Cancer s/p Partial Penectomy/Lymph Node Dissection and Chemotherapy in 2012
DVT proph: Lovenox
Code Status: Full Code
Anticipated Discharge: 24 - 48 hours
Subjective/Interval History
-
Date of Service: August 16, 2024
Patient with some improvement but still having significant erythema and swelling in the scrotal area. Afebrile
Objective Data
-
Labs:
Laboratory Results
08/16/24
07:22
WBC 6.9
Hgb 11.2 L
Hct 34.9 L
Plt Count 137
Sodium Pending
Potassium Pending
Chloride Pending
Carbon Dioxide Pending
BUN Pending
Creatinine Pending
Glucose Pending
Calcium Pending
Vital Signs:
Vital Signs
Temp Pulse Resp BP Pulse Ox
97.9 F 73 20 149/82 95
08/16/24 07:40 08/16/24 07:40 08/16/24 07:40 08/16/24 07:40 08/16/24 07:40
I&O
08/15/24 08/16/24 08/17/24
06:59 06:59 06:59
Intake Total 350 / 350 1930 / 1930
Output Total 650 / 650 1250 / 1250
Balance -300 / -300 680 / 680
[2024-08-16 08:42] LABS: Blood Urea Nitrogen 16 mg/dl (9-20); Calcium 8.6 mg/dl (8.4-10.2); Carbon Dioxide 28 mmol/L (22-30); Chloride 99 mmol/L (98-107); Estimated Creatinine Clearance 71 ml/min; Glucose 117 mg/dl (70-99); Potassium 3.5 mmol/L (3.5-5.1); Sodium 135 mmol/L (135-145); eGFR > 60.00
[2024-08-16] MEDS: FLOMAX 0.4 MG PO (09:07)
--- NOTE | 2024-08-16 09:13 | PHA.VAN.FU ---
Vancomycin Assessment / Plan
- Assessment
Renal Function: Stable
WBC's are: Trending Down
In the past 24 hrs, patient has been: Afebrile
Concomitant Antimicrobials: Piperacillin-tazobactam
- Dosing Plan
Continue: Vanc 1gm IV q12H
- Monitoring Plan
Peak Level: 1/5 at 2030
Trough Level: 1/6 at 0530
- Follow Up
Pharmacy will continue to follow.
Vancomycin Follow UP
- -
Patient Age: 68
Patient Sex: Male
Vancomycin Day #: 3
Indication: Skin And Soft Tissue (PENO SCROTAL CELLULITIS/SEPSIS)
Requesting Provider: DOMONIQUE
Pertinent Antimicrobial Allergies:
Allergies
nitrofurantoin [From Macrobid] Allergy (Verified 08/14/24 07:36)
Rash
Height / Weight:
Height 5 ft 7 in
Actual Weight 85.445 kg
Pertinent Past Medical History: CRYOABLATION FOR PROSTATE CA 07/23/24
- Vital Signs / Lab Results
Temp Pulse Resp BP Pulse Ox
97.9 F 73 20 149/82 95
08/16/24 07:40 08/16/24 07:40 08/16/24 07:40 08/16/24 07:40 08/16/24 07:40
Lab Results - Hematology
08/14/24 08/15/24 08/16/24
09:16 08:14 07:22
WBC 6.6 7.5 6.9
Lab Results - Chemistry
08/14/24 08/15/24 08/16/24
09:16 08:14 07:22
BUN 24 H 20 16
Creatinine 0.9 0.9 0.9
Estimated Creat Clear 71 71 71
Albumin 3.7
08/14/24
09:16
Lactic Acid 1.2
Lab Results - Urine
08/14/24
09:17
Urine Nitrite (Reflex) Positive A
Leukocyte Esterase Rfl 2+ A
Ur Squamous Epith Cells 0-2
Microbiology Results
08/14/24 09:17 Urine Culture - Preliminary
Urine Gram negative bacilli
08/14/24 09:16 Blood Culture - Preliminary
Blood/Venous No Growth in 24 hours- Final report to follow
08/14/24 09:16 Blood Culture - Preliminary
Blood/Venous No Growth in 24 hours- Final report to follow
08/14/24 09:16 Influenza Types A & B (JEANNETTE) - Final
Nasal Swab Negative for Influenza A & B, NAAT
Negative results must be combined with clinical observations
and patient history.
Nucleic Acid Amplification test (NAAT)performed on the
[employer] platform.
[2024-08-16 11:42] LABS: Glucose - Point of Care 103 mg/dl (70-99)
[2024-08-16] MEDS: LASIX 20 MG PO (12:03)
[2024-08-16] MEDS: KLOR-CON 20 MEQ PO (12:03)
--- NOTE | 2024-08-16 12:17 | W.PN.UPDATE ---
Update Note
Progress Note Update
This note serves as an addendum to the H&P by emergency department manager ADRIANA
Haylie DIETERICK
HPI
68M with complex urologic HX , Penile Cancer-Chemo, SurgeryUOP [address], HX Thalassemia, Asymtomatic Sarcoidosis by biopsy, borderline DM seen at ER;
- evaluation of fever and chills.
- Surgery Cryoablation Prostate CA in [facility] with Dr. Abrams 07/23/2024 and has had Qiu catheter in place since.
- postoperative course has been complicated by significant penile and scrotal edema precluding removal of catheter
- had a course of Macrobid after surgery and has been maintained on Flomax.
- Patient has been following here in [place] with Dr. Mccormack for urology,
- He has been on Lasix and potassium supplement to help with scrotal edema.
- He says urine has been clear and he had been doing generally well aside from scrotal swelling.
- last night he started to have high fever and chills
ROS
PHX
Partial penectomy and groin dissection at [facility] in 2012 for penile carcinoma
( Dr Sarmiento administered chemo- had been dz free since- some pelvic nodes on imaging- but stable)
Urologically has been under the care of Dr Herrera
Diagnosed with prostate cancer for which he elected to go to [place] for primary cryoablation, performed during July; returned to [place] with Qiu
Reviewed VS:
PE
General: No Apparent Distress
GI: Soft and Non Tender
Genito-urinary: Qiu Catheter and Other (uncircumcised penis and scrotum are grossly edematous and erythematous with tender induration along inferior scrotum into perineum)
marked penile and scrotal edema with Qiu catheter in place�unable to visualize glans/urethra due to marked edema; skin of the scrotum penis is erythematous, warm, tender to the touch and skin of the base of the scrotum is indurated, no wounds, no
significant erythema extending into the perineum, no crepitus or fluctuance; erythema does extend to the pubic mound/suprapubic region and this area is also warm and tender
Data
CBC and CMP no clinically significant.
UA positive for UTI
CT Abd/pelvis W Iv Cont:
Haziness surrounding the bladder concerning for UTI. New.
Moderate bladder wall thickening concerning for cystitis versus bladder outlet obstruction.
Moderate prostate hypertrophy. Stable
Large bilateral hydroceles. New
Possible right hilar mass versus consolidation pneumonia. Stable.
Prior PET/CT suggest findings consistent with known sarcoidosis.
There are partially calcified hilar and mediastinal lymph nodes consistent with sarcoidosis as well.
Moderate probable right upper lobe atelectasis versus scarring. Stable
Lingular, left lower lobe and probable right upper lobe pulmonary nodules. Stable and without activity on recent PET imaging.
Gallstones. Stable
1 mm nonobstructing left renal stone. Previously 2 stones were present on the left.
Moderate fecal material throughout the colon. Stable
ASSESSMENT & PLAN
Peno-scrotal cellulitis s/p cryoablation necrosis
Complicated UTI associated with sepsis( T [address] ) due to UTI
- NEG MRSA screen in the past
- keep Qiu
- f/u UCx
- cont. IV vancomycin and Zosyn
- cont. Frusemide and KCL supplement
Chr known HX:
HX Thalassemia
Asymtomatic Sarcoidosis by biopsy
Known Rt hilar mass and Prior PET/CT suggest findings consistent with known sarcoidosis.
Borderline DM
- stable
DVT PPX; LMWH
Full code
IP TLM
[2024-08-16] MEDS: STERILE WATER FOR INJECTION 10 ML IV (12:44)
[2024-08-16] MEDS: MAXIPIME 1000 MG IV (12:44)
[2024-08-16 15:20] LABS: Glucose - Point of Care 225 mg/dl (70-99)
[2024-08-16 15:20] LABS: Glucose - Point of Care 203 mg/dl (70-99)
[2024-08-16] MEDS: LOVENOX 40 MG SC (17:52)
[2024-08-16 21:52] LABS: Glucose - Point of Care 93 mg/dl (70-99)
[2024-08-17] MEDS: STERILE WATER FOR INJECTION 10 ML IV ×2 (00:12→11:57)
[2024-08-17] MEDS: MAXIPIME 1000 MG IV ×2 (00:12→11:57)
[2024-08-17 03:23] VITALS: BP 129/81
[2024-08-17 07:31] LABS: Glucose - Point of Care 100 mg/dl (70-99)
[2024-08-17 08:19] VITALS: BP 135/81
[2024-08-17 08:36] LABS: % Basophils 0.2 % (0-2); % Eosinophils 3.3 % (0-6); % Immature Granulocytes 0.2 % (0-0.5); % Lymphocytes 11.2 % (20.5-51.1); % Monocytes 14.7 % (1.7-9.3); % Neutrophils 70.4 % (42.2-75.2); Absolute Eosinophils 0.2 10^3/uL (0-0.7); Absolute Lymphocytes 0.6 10^3/uL (1.2-3.4); Absolute Monocytes 0.8 10^3/uL (0.1-0.6); Hematocrit 34.2 % (39.0-52.0); Hemoglobin 10.8 g/dL (13.0-18.0); Mean Corp Hgb Conc. 31.6 g/dL (33.0-37.0); Mean Corpuscular Hgb 20.3 pg (27.0-31.0); Mean Corpuscular Volume 64.3 fL (80.0-94.0); Mean Platelet Volume 10.5 fL (7.4-10.4); Nucleated Red Blood Cells % 0 % (-); Platelet Count 143 10^3/uL (130-400); Red Blood Cell Count 5.32 10^6/uL (4.70-6.10); Red Cell Dist. Width 15.6 % (11.5-14.5); White Blood Cell Count 5.7 10^3/uL (4.8-10.8)
[2024-08-17 09:15] LABS: Blood Urea Nitrogen 17 mg/dl (9-20); Calcium 8.8 mg/dl (8.4-10.2); Carbon Dioxide 28 mmol/L (22-30); Chloride 96 mmol/L (98-107); Estimated Creatinine Clearance 71 ml/min; Glucose 88 mg/dl (70-99); Potassium 3.5 mmol/L (3.5-5.1); Sodium 134 mmol/L (135-145); eGFR > 60.00
[2024-08-17] MEDS: FLOMAX 0.4 MG PO (09:18)
--- NOTE | 2024-08-17 10:03 | W.PN.URO.CBU ---
Today's Communication / Plan
-
Rec: Cefdinir or quinolone -- patient should contact his surgeon to determine duration of treatment following cryoablation of the prostate
Assessment / Plan
-
peno-scrotal cellulitis/edema -- post-cryoablation necrosis
UTI: Pseudomonas
Diagnosis
-
Date of Service: August 17, 2024
-
Patient Diagnosis:
peno-scrotal cellulitis -- post-cryoablation necrosis
UTI: Pseudomonas
Objective
-
Vital Signs
Temp Pulse Resp BP Pulse Ox
98.3 F 73 18 135/81 96
08/17/24 08:19 08/17/24 08:19 08/17/24 08:19 08/17/24 08:19 08/17/24 08:19
Intake and Output
08/16/24 08/17/24 08/18/24
06:59 06:59 06:59
Intake Total 1930 / 1930 1440 / 1440
Output Total 1250 / 1250 3100 / 3100
Balance 680 / 680 -1660 / -1660
Intake:
Oral fluids 1440 / 1440 1440 / 1440
IV fluids (Total) 40 / 40
IV piggybacks 450 / 450
Output:
Urine, Qiu 1250 / 1250 3100 / 3100
Laboratory Results
08/17/24 07:03
08/17/24 07:03
Urine cx: Pseudomonas
Physical Exam
-
General - well developed, well nourished, no acute distress
Chest - clear bilaterally
Abdomen - soft, non-tender, positive bowel sounds, no CVAT, no incisional pain or distention
Genitalia - normal
Rectal - normal
Skin - warm & dry with no rash
Neuro - AOx3, no motor deficits
Extremities - no clubbing, no cyanosis, no edema
Incision - clean, dry
Dressing - clean, dry, intact
[2024-08-17 11:03] LABS: Glycohemoglobin (HgbA1c) 5.7 % (4.0-5.6)
[2024-08-17] MEDS: LASIX 20 MG PO (11:57)
[2024-08-17] MEDS: KLOR-CON PO (11:58)
[2024-08-17 12:07] LABS: Glucose - Point of Care 98 mg/dl (70-99)
[2024-08-17 12:09] VITALS: BP 152/74
--- NOTE | 2024-08-17 13:49 | CM ---
human resources safety manager reviewed patient's chart and met with patient and patient lives with his spouse in a 2 story home, patient is independent with adl's and ambulation patient works and drives currently ambulating 150 feet with no device.
PCP: Dr. Nathaniel Jaquez
Pharmacy: [facility] on [address]
--- NOTE | 2024-08-17 15:11 | W.PN.HOSP.TC ---
Today's Communication/Plan
-
continue abx for now
possible d/c 24-48 hrs
Assessment / Plan
Assessment / Plan
Sepsis secondary to Catheter-Associated UTI and Peno-Scrotal Cellulitis/Post-Ablation Necrosis
-Appreciate Urology Consult and follow-up
-IV Zosyn changed to cefepime based on susceptibility
-Urine culture with Pseudomonas awaiting sensitivities. Blood cultures no growth.
-PT OT eval
-will discuss with primary urologist on patient request
Bilateral Hydrocele
-Keep Scrotum/Penis Elevated
-Defer further management to Urology
Thalassemia Minor
-Hgb Stable
Sarcoidosis
-Not currently on treatment
Prostate Cancer s/p Cryoablation on 07/23/24
Hx Penile Cancer s/p Partial Penectomy/Lymph Node Dissection and Chemotherapy in 2012
DVT proph: Lovenox
Code Status: Full Code
Anticipated Discharge: Within 24 hours
Subjective/Interval History
-
Date of Service: August 17, 2024
Afebrile overnight
No reported dysuria
Objective Data
-
Labs:
Laboratory Results
08/17/24
07:03
WBC 5.7
Hgb 10.8 L
Hct 34.2 L
Plt Count 143
Sodium 134 L
Potassium 3.5
Chloride 96 L
Carbon Dioxide 28
BUN 17
Creatinine 0.9
Glucose 88
Calcium 8.8
Vital Signs:
Vital Signs
Temp Pulse Resp BP Pulse Ox
98.1 F 77 16 152/74 97
08/17/24 12:09 08/17/24 12:09 08/17/24 12:09 08/17/24 12:09 08/17/24 12:09
I&O
08/16/24 08/17/2425
06:59 06:59 06:59
Intake Total 1930 / 1930 1440 / 1440
Output Total 1250 / 1250 3100 / 3100
Balance 680 / 680 -1660 / -1660
Review of Systems
-
Respiratory: Reports No Symptoms
Cardiac: Reports No Symptoms
Abdomen/GI: Reports No Symptoms
Physical Exam
-
General: No Apparent Distress and Comfortable
HEENT: Negative Oxygen
Respiratory: Clear to Auscultation
Cardiac: Regular Rhythm and S1/S2; Negative Murmur or Rub
GI: Soft, Nontender, Nondistended and Normal Bowel Sounds
Genito-urinary: Qiu (clear urine) and Other (Scrotal swelling )
Neuro: Awake, Alert, Oriented, No Motor Deficits and Nonfocal/Grossly Intact
Psych: Calm
[2024-08-17 15:25] VITALS: BP 113/69
[2024-08-17 17:06] LABS: Glucose - Point of Care 124 mg/dl (70-99)
[2024-08-17] MEDS: LOVENOX 40 MG SC (17:19)
[2024-08-17 19:00] VITALS: BP 118/73
[2024-08-17 21:39] LABS: Glucose - Point of Care 131 mg/dl (70-99)
[2024-08-17 23:00] VITALS: BP 142/82
[2024-08-18] MEDS: STERILE WATER FOR INJECTION 10 ML IV (00:06)
[2024-08-18] MEDS: MAXIPIME 1000 MG IV (00:06)
[2024-08-18 03:00] VITALS: BP 154/83
[2024-08-18 07:26] VITALS: BP 108/75
[2024-08-18 07:39] LABS: Glucose - Point of Care 115 mg/dl (70-99)
[2024-08-18] MEDS: LASIX 40 MG IV (08:30)
[2024-08-18] MEDS: FLOMAX 0.4 MG PO (08:30)
--- NOTE | 2024-08-18 10:10 | W.PN.URO.CBU ---
Today's Communication / Plan
-
discharge with jones and meds
Assessment / Plan
-
peno-scrotal cellulitis/edema -- post-cryoablation necrosis
UTI: Pseudomonas
reviewed with pt and med team
was able to change jones at bedside/required second assist (dr gonzalez)- given edema- i do not think pt is ready for TOV both in terms of ability to urinate/urine drip on skin/difficulty to place jones
plan to discharge with course of antibx to complete two week course- double flomax and lasix dosing
pt will call me saturday to discuss his degree of edema and discussion of voiding trial
ultimately as our group does not do cryotherapy- will need to either find local md or revisit with treating md in [place]
Diagnosis
-
Date of Service: August 18, 2024
-
Patient Diagnosis:
peno-scrotal cellulitis -- post-cryoablation necrosis
UTI: Pseudomonas
sig genital edema
Subjective
-
pt feels okay
still with sig scrotal and penile edema- but no sig erythema
urine clear
ucx + for pseudomonas
no fevers/nl wbc
Objective
-
Vital Signs
Temp Pulse Resp BP Pulse Ox
98.3 F 67 18 108/75 96
08/18/24 07:26 08/18/24 07:26 08/18/24 07:26 08/18/24 07:26 08/18/24 07:26
Intake and Output
08/17/24 08/18/24 08/19/24
06:59 06:59 06:59
Intake Total 1440 / 1440 1920 / 1920
Output Total 3100 / 3100 1000 / 1000
Balance -1660 / -1660 920 / 920
Intake:
Oral fluids 1440 / 1440 1920 / 1920
Output:
Urine, Jones 3100 / 3100 1000 / 1000
Laboratory Results
08/17/24 07:03
08/17/24 07:03
Review of Systems
-
Constitutional: Fatigue
Respiratory: No Symptoms
Cardiac: No Symptoms
Abdomen/GI: No Symptoms
Physical Exam
-
General - no acute distress
Abdomen - soft, non-tender
Genitalia - jones in place- urine clear- sig penile and scrotal edema
--- NOTE | 2024-08-18 10:14 | W.PN.HOSP.TC ---
Today's Communication/Plan
-
d/c home
Assessment / Plan
Assessment / Plan
Sepsis secondary to Catheter-Associated UTI and Peno-Scrotal Cellulitis/Post-Ablation Necrosis
-Appreciate Urology Consult and follow-up
-IV Zosyn changed to cefepime based on susceptibility
-Urine culture with Pseudomonas awaiting sensitivities. Blood cultures no growth.
- updated urologist in [place]
- Discussed with admission nurse coordinator urology and recommended 2 weeks of abx course - changed to levaquin
Bilateral Hydrocele
-Keep Scrotum/Penis Elevated
-Increased dose of lasix to 20mg/bid
-OTC scrotal support device recommended.
Thalassemia Minor
-Hgb Stable
Sarcoidosis
-Not currently on treatment
Prostate Cancer s/p Cryoablation on 07/23/24
Hx Penile Cancer s/p Partial Penectomy/Lymph Node Dissection and Chemotherapy in 2012
DVT proph: Lovenox
Code Status: Full Code
More than 30 minutes spent in discharge including
Final examination of the patient
Summarizing hospital stay
Instructions for continuing care to all relevant caregivers
Preparation of discharge records, prescriptions, and referral forms
Total time spent (in minutes): 42 mins
Anticipated Discharge: Today
Subjective/Interval History
-
Date of Service: August 18, 2024
seen and examined
afebrile overnight
no acute issues
Objective Data
-
Vital Signs:
Vital Signs
Temp Pulse Resp BP Pulse Ox
98.3 F 67 18 108/75 96
08/18/24 07:26 08/18/24 07:26 08/18/24 07:26 08/18/24 07:26 08/18/24 07:26
I&O
08/17/24 08/18/24 08/19/24
06:59 06:59 06:59
Intake Total 1440 / 1440 1920 / 1920
Output Total 3100 / 3100 1000 / 1000
Balance -1660 / -1660 920 / 920
Review of Systems
-
Respiratory: Reports No Symptoms
Cardiac: Reports No Symptoms
Abdomen/GI: Reports No Symptoms
Physical Exam
-
General: Comfortable
HEENT: Negative Oxygen
Respiratory: Clear to Auscultation
Genito-urinary: Qiu (clear urine) and Other (Scrotal swelling )
Neuro: Awake, Alert, Oriented, No Motor Deficits and Nonfocal/Grossly Intact
Psych: Calm
[2024-08-18 11:20] VITALS: BP 116/64
--- NOTE | 2024-08-18 11:30 | CM ---
Home today with spouse no needs.
Plan; Home no needs.
--- NOTE | 2024-08-18 14:22 | W.DCSUMMARY ---
Discharge Summary
Discharge Data
Date of Admission: 08/14/24
Date of Discharge: 08/18/24
-
Pending Results: No
Hospital Course
Discharging Physician : Dr Shane Friend
Disposition : To home
Primary care physician : Dr Slime Sykes
Principal Discharge diagnosis :
Sepsis secondary to catheter associated urinary tract infection from Pseudomonas
Bilateral hydrocele
Recent cryoablation of prostatic malignancy
Chronic Discharge diagnosis :
History of partial penectomy for penile carcinoma in 2013 at [facility]
History of sarcoidosis history of thoracic and minor
History of thalassemia minor
Hospital Course :
Patient is 68-year-old male with above-mentioned complex urological history came to ER for having new onset of fever/scrotal/penile swelling. Patient has undergone cryoablation of prostatic malignancy in [place] 2 weeks back and has Qiu catheter
placed. Postprocedure patient noticed to have persistent swelling/scrotal edema. On top of that patient started having new fever and came to ER for further evaluation. In ER patient was noted to having significant pyuria and bacteriuria. Patient
was diagnosed to have catheter associated urinary tract infection and was started on broad-spectrum antibiotic. Urine culture collected which later grew Pseudomonas and was pansensitive to antibiotic. Urology was following along and recommended
patient to finish 2 weeks of antibiotic course.
For patient bilateral hydrocele patient was advised to use scrotal support at home. Dose of Lasix was increased to 20 mg twice daily as well.
Patient will follow-up with urology in office in 1 week
Important imaging findings :
None
Procedure findings :
None
Discharge Plan
-
Patient Disposition: Home (Routine Discharge)
Discharge Diagnosis/Procedures: Pseudomonal CAUTI, Hydorcoele
Condition: Fair
Diet: Low Sodium
Activity: As tolerated
Driving Restrictions: As prior to admission
Bathing Restrictions: OK to Shower
Activity Restrictions/Additional Instructions:
Use over the counter scrotal support device.
Referrals:
Gisele,Nathaniel, MD [Family Provider] - in one week
Brennon Mccormack Jr., MD [Active] - 08/24/24
Prescriptions:
New
levofloxacin 750 mg tablet
750 mg PO DAILY Qty: 14 0RF
furosemide [Lasix] 20 mg tablet
20 mg PO BID Qty: 60 1RF
Rx Instructions:
Decrease it to once daily once scrotal swelling resolved
tamsulosin [Flomax] 0.4 mg capsule
0.8 mg PO DAILY Qty: 60 2RF
Continued
ascorbic acid (vitamin C) [Vitamin C] 1,000 mg Tablet
1,000 mg PO DAILY
potassium chloride [Klor-Con] 20 mEq packet
20 meq PO DAILY@1200
bisacodyl [Dulcolax (bisacodyl)] 5 mg Tablet,Delayed Release (Dr/Ec)
5 mg PO DAILYPRN PRN (Reason: constipation)
cholecalciferol (vitamin D3) [Vitamin D3] 125 mcg (5,000 unit) Tablet
125 mcg PO DAILY
Discontinued
tamsulosin 0.4 mg capsule
0.4 mg PO DAILY
furosemide 20 mg tablet
20 mg PO DAILY@1200
Discharge Orders:
Discharge Patient (As Directed); Ordered 08/18/24
Ordered By: Shane Friend
Discharge Date and Time
Discharge Date/Time: 08/18/24 13:04
Print Language: TELUGU
== END 2024-08-18 13:04 | disposition home or self-care (01) | DRG 698 ==
LOC: 4 WEST ACU 12:46
PROVIDERS: Hospitalist; Physician Assistant Medical; ADMITTING PHYSICIAN Internal Medicine; ATTENDING PHYSICIAN Hospitalist; CONSULT PHYSICIAN Specialist; EMERGENCY PHYSICIAN Emergency Medicine; FAMILY PHYSICIAN Internal Medicine
DX: T83.518A Infection and inflammatory reaction due to other urinary catheter, initial encounter (principal); A41.9 Sepsis, unspecified organism; N39.0 Urinary tract infection, site not specified; Y84.6 Urinary catheterization as the cause of abnormal reaction of the patient, or of later complication, without mention of misadventure at the time of the procedure; N43.3 Hydrocele, unspecified; B96.5 Pseudomonas (aeruginosa) (mallei) (pseudomallei) as the cause of diseases classified elsewhere; Z85.49 Personal history of malignant neoplasm of other male genital organs; D86.9 Sarcoidosis, unspecified; D56.3 Thalassemia minor; Z92.21 Personal history of antineoplastic chemotherapy; Z85.46 Personal history of malignant neoplasm of prostate; K59.00 Constipation, unspecified; N49.2 Inflammatory disorders of scrotum; R73.03 Prediabetes; Z87.891 Personal history of nicotine dependence; Z11.52 Encounter for screening for COVID-19
CPT/HCPCS: 74177; 80048; 80053; 81003; 81015; 82962; 83036; 83605; 85025; 85027; 87040; 87077; 87086; 87186; 87502; 87811; 96365; 96366; 96367; 97162; 99285; Q9967

== ENCOUNTER → 2024-09-11 13:27 | Outpatient (REF) | payer MEDICARE, OTHER, SELFPAY | LOC: RAD 13:27 | PROVIDERS: ATTENDING PHYSICIAN Nurse Practitioner Adult Health; FAMILY PHYSICIAN Internal Medicine | DX: C60.9 Malignant neoplasm of penis, unspecified (principal); C61 Malignant neoplasm of prostate | CPT/HCPCS: 71260; Q9967 ==

== ENCOUNTER → 2024-10-19 07:01 | Outpatient (REF) | payer MEDICARE, OTHER, SELFPAY ==
[2024-10-19 08:51] LABS: PSA, Total - Diagnostic 0.37 ng/ml (0.0-4.0)
== END ==
LOC: REG 07:01
PROVIDERS: ATTENDING PHYSICIAN Urology; FAMILY PHYSICIAN Internal Medicine; OTHER PHYSICIAN Specialist; REFERRING PHYSICIAN Internal Medicine Hematology & Oncology
DX: C61 Malignant neoplasm of prostate (principal)
CPT/HCPCS: 36415; 84153

== ENCOUNTER → 2025-01-20 07:26 | Outpatient (REF) | payer MEDICARE, OTHER, SELFPAY ==
[2025-01-20 12:36] LABS: PSA, Total - Diagnostic 0.43 ng/ml (0.0-4.0)
== END ==
LOC: REG 07:26
PROVIDERS: ATTENDING PHYSICIAN Urology; FAMILY PHYSICIAN Internal Medicine; REFERRING PHYSICIAN Internal Medicine Hematology & Oncology
DX: C61 Malignant neoplasm of prostate (principal)
CPT/HCPCS: 36415; 84153

== ENCOUNTER → 2025-03-18 07:25 | Outpatient (REF) | payer MEDICARE, OTHER, SELFPAY ==
[2025-03-18 08:50] LABS: Hematocrit 43.0 % (39.0-52.0); Hemoglobin 13.3 g/dL (13.0-18.0); Mean Corp Hgb Conc. 30.9 g/dL (33.0-37.0); Mean Corpuscular Volume 65.4 fL (80.0-94.0); Nucleated Red Blood Cells % 0 % (-); Platelet Count 116 10^3/uL (130-400); Red Cell Dist. Width 17.9 % (11.5-14.5)
[2025-03-18 09:10] LABS: ALT (SGPT) 20 U/L (0-50); AST (SGOT) 20 U/L (17-59); Albumin 4.4 g/dl (3.5-5.0); Alkaline Phosphatase 51 U/L (38-126); Blood Urea Nitrogen 27 mg/dl (9-20); Calcium 9.8 mg/dl (8.4-10.2); Carbon Dioxide 30 mmol/L (22-30); Chloride 103 mmol/L (98-107); Glucose 97 mg/dl (70-99); Potassium 4.2 mmol/L (3.5-5.1); Sodium 140 mmol/L (135-145); Total Protein 7.2 g/dl (6.3-8.2); eGFR > 60.00
== END ==
LOC: REG 07:25
PROVIDERS: ATTENDING PHYSICIAN Internal Medicine Hematology & Oncology; FAMILY PHYSICIAN Internal Medicine
DX: C60.9 Malignant neoplasm of penis, unspecified (principal); C61 Malignant neoplasm of prostate
CPT/HCPCS: 36415; 80053; 85025

== ENCOUNTER → 2025-04-23 07:21 | Outpatient (REF) | payer MEDICARE, OTHER, SELFPAY ==
[2025-04-23 09:20] LABS: PSA, Total - Diagnostic 0.50 ng/ml (0.0-4.0)
== END ==
LOC: REG 07:21
PROVIDERS: ATTENDING PHYSICIAN Urology; FAMILY PHYSICIAN Internal Medicine; OTHER PHYSICIAN Internal Medicine Hematology & Oncology
DX: C61 Malignant neoplasm of prostate (principal)
CPT/HCPCS: 36415; 84153

== ENCOUNTER → 2025-07-16 06:53 | Outpatient (REF) | payer MEDICARE, OTHER, SELFPAY ==
[2025-07-16 08:46] LABS: PSA, Total - Diagnostic 0.51 ng/ml (0.0-4.0)
== END ==
LOC: REG 06:53
PROVIDERS: ATTENDING PHYSICIAN Urology; FAMILY PHYSICIAN Internal Medicine; OTHER PHYSICIAN Internal Medicine Hematology & Oncology
DX: C61 Malignant neoplasm of prostate (principal)
CPT/HCPCS: 36415; 84153